=== PATIENT | female | born 1955 | race Caucasian/White ===

== ENCOUNTER 2023-08-21 17:59 | Outpatient (CLI) | payer MEDICARE, SELFPAY | END 2023-08-21 18:00 | disposition home or self-care (01) | LOC: AMB 09-23 11:29 | PROVIDERS: Visit Provider Student in an Organized Health Care Education/Training Program | DX: S89.92XA Unspecified injury of left lower leg, initial encounter (principal); S79.912A Unspecified injury of left hip, initial encounter; S09.90XA Unspecified injury of head, initial encounter; W10.9XXA Fall (on) (from) unspecified stairs and steps, initial encounter; Y92.9 Unspecified place or not applicable | CPT/HCPCS: A0425; A0433 ==